=== PATIENT | female | born 1940 | race Caucasian/White ===

== ENCOUNTER 2018-05-30 12:19 | Emergency (ER) | payer MEDICARE, BC, OTHER ==
--- NOTE | 2018-05-30 14:39 | CT ---
CT CERVICAL SPINE PERFORMED WITHOUT CONTRAST ENHANCEMENT: Date: 05/30/18 HISTORY: Fell in garage earlier today. Neck pain. FINDINGS: The vertebral bodies are normal in height. There is a minimal anterolisthesis of C4 on C5. There is d isc narrowing at C5-6, C6-7, and C7-T1. There are mild degenerative facet changes. The facets are in normal alignment. At the C4-5 level, there are somewhat asymmetric right uncovertebral changes and some mild right fora delfina narrowing. There is no central canal stenosis. There is no CT evidence for fracture. There is s ome moderate plaque formation of the common carotid artery near the bifurcation. Lung apices show wha t appears to be some chronic apical pleural lung change. IMPRESSION: No CT evidence of fracture of the cervical spine. Other incidental findings as noted above. POS: [facility]
--- NOTE | 2018-05-30 14:43 | CT ---
NONCONTRAST CT HEAD: 05/30/2018 HISTORY: Injury after falling in garage. Pain to forehead and left side of face. COMPARISON: None available. FINDINGS: There is no evidence of an intraparenchymal or extraaxial hemorrhage. A few low density areas are se en scattered within the periventricular white matter, which are nonspecific but likely reflective of mild chronic small vessel ischemic changes. There is mild cerebral volume loss. The ventricular sys tem is normal in size, shape, and position for the degree of sulcal atrophy. Dense vascular calcific ations are seen in the distal vertebral arteries and in the carotid siphons. Scalp soft tissue swelling is seen in the central and left anterior frontal region, but no underlying calvarial fracture is seen. The visualized paranasal sinuses and mastoid air cells are clear. IMPRESSION: 1. No acute intracranial abnormalities demonstrated. 2. Anterior frontal scalp hematoma without evidence of underlying fracture. POS: [facility]
== END 2018-05-30 14:20 | disposition home or self-care (01) ==
LOC: MADERS 12:19
DX: S00.03XA Contusion of scalp, initial encounter (principal); S00.212A Abrasion of left eyelid and periocular area, initial encounter; I10 Essential (primary) hypertension; E78.00 Pure hypercholesterolemia, unspecified; F17.210 Nicotine dependence, cigarettes, uncomplicated; Z79.899 Other long term (current) drug therapy; W19.XXXA Unspecified fall, initial encounter
CPT/HCPCS: 70450; 72125

== ENCOUNTER 2024-05-19 14:47 | Emergency (ER) | payer MEDICARE, BC ==
[~2024-05-19 14:47] MED LIST: Iopamidol 370 76% 100 ML VIAL ONE; Sodium Chloride 0.9% 100 ML BAG ONE
[2024-05-19] MEDS ORDERED: methylPREDNISolone Sod Succ/PF 125 MG/2 ML VIAL ONE (15:16)
[2024-05-19] MEDS ORDERED: Ipratropium/Albuterol 3 ML NEB ONE (15:16)
[2024-05-19 15:49] LABS: ALT (SGPT) 20 U/L (8-55); AST (SGOT) 17 U/L (5-34); Albumin 2.7 g/dL (3.4-4.8); Alkaline Phosphatase 66 U/L (40-110); Anion Gap 16 mmol/L (10-20); BUN (Urea Nitrogen) 13 mg/dL (9.8-20.1); Bilirubin, Total 0.2 mg/dL (0.2-1.2); Calc. Creatinine Clearance 0 mL/min (70-130); Calcium 8.5 mg/dL (7.8-10.44); Carbon Dioxide 24 mmol/L (23-31); Chloride 96 mmol/L (98-107); Estimated GFR 92; Globulin 3.4 g/dL (2.4-3.5); Glucose 94 mg/dL (83-110); Potassium 3.8 mmol/L (3.5-5.1); Protein, Total 6.1 g/dL (5.8-8.1); Sodium 132 mmol/L (136-145)
[2024-05-19 15:50] LABS: Anisocytosis SLIGHT = 6-15 cells (100X) (0-5/hpf); Band 14 % (5-11); Eosinophils 1 % (0-10); Hematocrit 21.4 % (36.0-47.0); Hemoglobin 6.9 g/dL (12.0-16.0); Hypochromia MODERATE=16-30 cells (100X) (0-5/hpf); Lymphocytes 9 % (21-51); MDiff Complete? YES; Mean Corpuscular Hemoglobin 28.6 pg (27.0-31.0); Mean Corpuscular Volume 89.4 fl (78.0-98.0); Mean Platelet Volume 5.7 fL (7.4-10.4); Monocytes 7 % (0-10); Neutrophil 69 % (42-75); Platelet Adequacy Comment Appears Increased; Platelet Count 516 10x3/uL (130-400); RBC Distribution Width 13.6 % (11.5-14.5); Red Blood Cell (RBC) Count 2.39 mill/uL (4.20-5.40); White Blood Cell (WBC) Count 10.9 10x3/uL (4.8-10.8)
[2024-05-19 16:54] LABS: Bacteria/HPF Rare-Few HPF (None Seen); Bilirubin Negative (Negative); Blood, Urine Negative (Negative); CAUTI Indications for Culture Alt mental st,lethar; Clarity Clear (Clear); Glucose, Urine (Dipstick) Negative (Negative); Ketone, Urine Trace mg/dL (Negative); Leukocyte Trace (Negative); Nitrite Negative (Negative); Protein, Urine (Dipstick) Negative (Neg-Trace); RBC/HPF 0-3 HPF (0-3); Specific Gravity, Urine 1.015 (1.005-1.030); Squamous Epithelial 0-3 HPF (0-3); Urobilinogen 0.2 mg/dL (Less than 2)
[2024-05-19 16:55] LABS: Urine Culture Reflex No No
[2024-05-19] MEDS ORDERED: cefTRIAXone (ROCEPHIN) 2 GM VIAL ONE (18:01)
[2024-05-19] MEDS ORDERED: Sodium Chloride 0.9% 100 ML ONE (18:01)
[2024-05-19 18:58] LABS: Troponin I 0.034 ng/mL (< 0.028)
[2024-05-19] MEDS ORDERED: fentaNYL 50 mcg/mL 1 mL Vial ONE (19:46)
== END 2024-05-19 20:22 | disposition short-term general hospital (02) ==
LOC: MADERS 14:47
DX: C34.91 Malignant neoplasm of unspecified part of right bronchus or lung (principal); J44.1 Chronic obstructive pulmonary disease with (acute) exacerbation; J18.9 Pneumonia, unspecified organism; I26.99 Other pulmonary embolism without acute cor pulmonale; D64.9 Anemia, unspecified; I10 Essential (primary) hypertension; E78.00 Pure hypercholesterolemia, unspecified; Z79.82 Long term (current) use of aspirin; Z87.891 Personal history of nicotine dependence; Z79.899 Other long term (current) drug therapy
CPT/HCPCS: 71045; 71275; 80053; 81001; 83605; 84484 ×2; 85025; 85379; 86850; 86900; 86901; 86920; 87040; 87070; 87205; 93005; 94640; 94760; J0696; J2919; J3010; 36415; 96365; 96375; J7620; Q9967